=== PATIENT | male | born 1965 | race Caucasian/White ===

== ENCOUNTER 2020-07-28 14:12 | Inpatient (IN) | payer OTHER ==
[~2020-07-28] VITALS: Ht 165.1 cm; Wt 72.6 kg
--- NOTE | ~2020-07-28 | IN ---
[address] [address] INTERIM NOTE Name: STOCKTONEVERETTE Kristin Room: [address] ADM IN M.R.#: [id number] Admission: 07/28/20 Attend Phys: Zeus Mabry MD Discharge: Date of : 69 Report #: [id number] THIS REPORT FOR: cc: FAM - No family physician/PCP FAM - No family physician/PCP ~ Zachary Trevino MD SUBJECTIVE: The patient is feeling better, recovering from surgery well. Denies pain, fevers. PHYSICAL EXAMINATION: VITAL SIGNS: Afebrile, heart rate 72, respirations 18. NECK: Supple. There is no supraclavicular lymphadenopathy. LUNGS: Clear. EXTREMITIES: Lower extremity, no edema. Left thigh covered with dressing. LABORATORY DATA PATHOLOGY: Soft tissue neoplasm, leiomyosarcoma is not excluded. Margins involved. 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 I discussed pathology findings with the patient, the nature of neoplasm is not quite clear, margins are involved. He needs to have reexcision of the lesion. I recommended to see Dr. Christie, medical oncologist for followup. He will he will refer the patient to Dr. Ontiveros for definite surgery. I will discuss this case with Dr. Schwarz. By: [id number] Trevino MD /nt
[~2020-07-28 14:12] MED LIST: KEFLEX500 MG PO; PERCOCET 5-3251 EACH PO; SILVADENE20 GM TP
[2020-07-28 20:00] VITALS: BP 124/75
[2020-07-29 06:34] LABS: HEMATOCRIT 28.2 % (42.0-52.0); HEMOGLOBIN 9.4 gm/dL (14.0-18.0); MCH 29.7 pg (26.0-34.0); MCHC 33.3 g/dL (28.0-37.0); MCV 89.1 fL (80.0-100.0); MPV 7.3 fl. (7.2-11.1); RBC 3.16 mil/uL (4.50-6.00); RDW-CV 14.8 % (10.5-14.5); WBC 8.5 thou/uL (4.0-11.0)
[2020-07-29 06:58] LABS: CALCIUM 8.5 mg/dL (8.5-10.1); CREATININE 0.5 mg/dL (0.6-1.3); POTASSIUM 3.6 mmol/L (3.5-5.1)
[2020-07-29 07:38] VITALS: BP 108/62
[2020-07-29 20:10] VITALS: BP 125/80
[2020-07-30 08:00] VITALS: BP 99/66
[2020-07-30 20:11] VITALS: BP 102/59
[2020-07-31 07:36] VITALS: BP 122/75
[2020-07-31 19:50] VITALS: BP 125/67
[2020-08-01 08:00] VITALS: BP 118/60
[2020-08-01 19:44] VITALS: BP 117/72
[2020-08-02 04:12] LABS: CALCIUM 8.5 mg/dL (8.5-10.1); CREATININE 0.4 mg/dL (0.6-1.3); POTASSIUM 3.5 mmol/L (3.5-5.1)
[2020-08-02 04:16] LABS: HEMATOCRIT 27.8 % (42.0-52.0); HEMOGLOBIN 9.2 gm/dL (14.0-18.0); MCH 29.4 pg (26.0-34.0); MCHC 33.1 g/dL (28.0-37.0); MCV 88.9 fL (80.0-100.0); MPV 7.3 fl. (7.2-11.1); RBC 3.13 mil/uL (4.50-6.00); RDW-CV 15.4 % (10.5-14.5); WBC 9.3 thou/uL (4.0-11.0)
[2020-08-02 10:10] VITALS: BP 133/60
[2020-08-02 19:00] VITALS: BP 104/66; BP 139/67
[2020-08-03 07:44] VITALS: BP 134/83
[2020-08-03 19:30] VITALS: BP 132/80
[2020-08-04 07:30] VITALS: BP 130/82
[2020-08-04 08:00] VITALS: BP 130/82
[2020-08-04] MEDS ORDERED: MELATONIN1 MG PO (10:52)
[2020-08-04] MEDS ORDERED: COLACE 100 MG100 MG PO (10:52)
[2020-08-04] MEDS ORDERED: VOLTAREN GEL 1100 G1 TOP (10:52)
[2020-08-04] MEDS ORDERED: MI-ACID80 MG PO (10:52)
[2020-08-04] MEDS ORDERED: NEXIUM40 MG PO (10:52)
[2020-08-04] MEDS ORDERED: HYDROCODON-ACE1 EAC7 PO (10:52)
[2020-08-04 20:00] VITALS: BP 123/77
[2020-08-05 07:58] VITALS: BP 138/78
[2020-08-05 19:25] VITALS: BP 106/79
[2020-08-06 08:00] VITALS: BP 129/81
[2020-08-06 20:45] VITALS: BP 113/76
[2020-08-07 08:00] VITALS: BP 123/72
[2020-08-07 20:15] VITALS: BP 107/68
[2020-08-08 07:44] VITALS: BP 130/86
[2020-08-08 11:45] VITALS: BP 130/86
[2020-08-08] MEDS ORDERED: NEXIUM40 MG PO (11:48)
[2020-08-08] MEDS ORDERED: VOLTAREN GEL 1100 G1 TOP (11:48)
[2020-08-08] MEDS ORDERED: HYDROCODON-ACE1 EAC7 PO (11:48)
[2020-08-08] MEDS ORDERED: NORCO5 PO (12:15)
[2020-08-08 13:34] VITALS: BP 130/86
[2020-08-08 15:32] VITALS: BP 130/86
== END 2020-08-08 15:36 | disposition home or self-care (01) | DRG 947 ==
LOC: M.REH 14:12
PROVIDERS: ADMIT Physical Medicine & Rehabilitation; ATTEND Physical Medicine & Rehabilitation
DX: R53.81 Other malaise (principal); A41.9 Sepsis, unspecified organism; J96.01 Acute respiratory failure with hypoxia; J96.02 Acute respiratory failure with hypercapnia; E43 Unspecified severe protein-calorie malnutrition; G92 Toxic encephalopathy; R53.2 Functional quadriplegia; J15.6 Pneumonia due to other Gram-negative bacteria; K65.9 Peritonitis, unspecified; R65.20 Severe sepsis without septic shock; E87.1 Hypo-osmolality and hyponatremia; E87.6 Hypokalemia; K26.9 Duodenal ulcer, unspecified as acute or chronic, without hemorrhage or perforation; F17.210 Nicotine dependence, cigarettes, uncomplicated; F12.90 Cannabis use, unspecified, uncomplicated; B96.89 Other specified bacterial agents as the cause of diseases classified elsewhere; G72.89 Other specified myopathies; D49.89 Neoplasm of unspecified behavior of other specified sites; Z79.899 Other long term (current) drug therapy; Z68.26 Body mass index [BMI] 26.0-26.9, adult

== ENCOUNTER → 2020-08-11 | Outpatient (CLI) | payer OTHER ==
[~2020-08-11] MED LIST changes: +COLACE 100 MG100 MG PO; +HYDROCODON-ACE1 EAC7 PO; +MELATONIN1 MG PO; +MI-ACID80 MG PO; +NEXIUM40 MG PO; +NORCO5 PO; +VOLTAREN GEL 1100 G1 TOP
== END ==
LOC: M.WC 08-07 09:00
PROVIDERS: ATTEND Family Medicine
DX: T81.89XA Other complications of procedures, not elsewhere classified, initial encounter (principal); K25.1 Acute gastric ulcer with perforation; Z87.891 Personal history of nicotine dependence; Y83.8 Other surgical procedures as the cause of abnormal reaction of the patient, or of later complication, without mention of misadventure at the time of the procedure; Y92.238 Other place in hospital as the place of occurrence of the external cause

== ENCOUNTER → 2020-08-14 | Outpatient (CLI) | payer OTHER | LOC: M.WC 09:37 | PROVIDERS: ATTEND Surgery | DX: T81.89XD Other complications of procedures, not elsewhere classified, subsequent encounter (principal); K25.1 Acute gastric ulcer with perforation; Z87.891 Personal history of nicotine dependence; Y83.8 Other surgical procedures as the cause of abnormal reaction of the patient, or of later complication, without mention of misadventure at the time of the procedure ==

== ENCOUNTER → 2020-08-17 | Outpatient (CLI) | payer OTHER | LOC: M.WC 09:55 | PROVIDERS: ATTEND Surgery | DX: T81.89XD Other complications of procedures, not elsewhere classified, subsequent encounter (principal); K25.1 Acute gastric ulcer with perforation; Z87.891 Personal history of nicotine dependence; Y83.8 Other surgical procedures as the cause of abnormal reaction of the patient, or of later complication, without mention of misadventure at the time of the procedure ==

== ENCOUNTER → 2020-08-21 | Outpatient (CLI) | payer OTHER | LOC: M.WC 09:27 | PROVIDERS: ATTEND Surgery | DX: T81.89XD Other complications of procedures, not elsewhere classified, subsequent encounter (principal); K25.1 Acute gastric ulcer with perforation; Z87.891 Personal history of nicotine dependence; Y83.8 Other surgical procedures as the cause of abnormal reaction of the patient, or of later complication, without mention of misadventure at the time of the procedure ==

== ENCOUNTER → 2020-08-28 | Outpatient (CLI) | payer OTHER | LOC: M.WC 09:47 | PROVIDERS: ATTEND Surgery | DX: T81.89XD Other complications of procedures, not elsewhere classified, subsequent encounter (principal); K25.1 Acute gastric ulcer with perforation; Z87.891 Personal history of nicotine dependence; Y83.8 Other surgical procedures as the cause of abnormal reaction of the patient, or of later complication, without mention of misadventure at the time of the procedure ==

== ENCOUNTER → 2020-09-04 | Outpatient (CLI) | payer OTHER | LOC: M.WC 09:29 | PROVIDERS: ATTEND Surgery | DX: T81.89XD Other complications of procedures, not elsewhere classified, subsequent encounter (principal); K25.1 Acute gastric ulcer with perforation; Z87.891 Personal history of nicotine dependence; Y83.8 Other surgical procedures as the cause of abnormal reaction of the patient, or of later complication, without mention of misadventure at the time of the procedure ==

== ENCOUNTER 2020-11-04 12:33 | Inpatient (IN) | payer MEDICAID ==
[~2020-11-04] VITALS: Ht 165.1 cm; Wt 85.6 kg
[2020-11-04] VITALS (21 sets, daily range): BP systolic 86–140; BP diastolic 55–93
[2020-11-04 12:55] LABS: ABSOLUTE BASOPHILS 0.1 thou/uL (0.0-0.2); ABSOLUTE EOSINOPHILS 0.3 thou/uL (0.0-0.7); ABSOLUTE LYMPHOCYTES 3.4 thou/uL (0.8-5.3); ABSOLUTE MONOCYTES 0.7 thou/uL (0.0-1.2); ABSOLUTE NEUTROPHILS 4.7 thou/uL (1.6-8.1); EOSINOPHILS 3.1 %; HEMATOCRIT 45.7 % (42.0-52.0); HEMOGLOBIN 14.6 gm/dL (14.0-18.0); LYMPHOCYTES 37.3 %; MCH 26.3 pg (26.0-34.0); MCHC 32.1 g/dL (28.0-37.0); MONOCYTES 7.5 %; MPV 6.9 fl. (7.2-11.1); NUCLEATED RBCS 0 /100WBC; PLATELET COUNT* 459 thou/uL (150-400); POLYS 51.1 %; RBC 5.57 mil/uL (4.50-6.00); RDW-CV 18.1 % (10.5-14.5); WBC 9.2 thou/uL (4.0-11.0)
[2020-11-04 13:01] LABS: CALCIUM 9.1 mg/dL (8.5-10.1); CREATININE 0.8 mg/dL (0.6-1.3); POTASSIUM 3.7 mmol/L (3.5-5.1)
[2020-11-04 13:06] LABS: APTT 26.3 Seconds (25.0-31.3); PROTIME 10.2 Seconds (9.20-11.50)
--- NOTE | 2020-11-04 17:32 | NUR ---
PT ADMITTED TO ICU 6 AT 1425. PT STABLE. VSS, NO SIGNS OF BLEEDING. RIGHT GROIN CATH SITE DRESSING IS DRY AND INTACT. SO IS PRESENT AT BEDSIDE.
[2020-11-05] VITALS (14 sets, daily range): BP systolic 92–150; BP diastolic 48–129
[2020-11-05 03:19] LABS: HEMATOCRIT 40.5 % (42.0-52.0); HEMOGLOBIN 13.2 gm/dL (14.0-18.0); MCH 26.9 pg (26.0-34.0); MCHC 32.6 g/dL (28.0-37.0); MCV 82.5 fL (80.0-100.0); RBC 4.91 mil/uL (4.50-6.00); WBC 7.6 thou/uL (4.0-11.0)
[2020-11-05 03:26] LABS: CALCIUM 8.3 mg/dL (8.5-10.1); CREATININE 0.8 mg/dL (0.6-1.3); POTASSIUM 3.8 mmol/L (3.5-5.1)
--- NOTE | 2020-11-05 04:41 | NUR ---
ASSUMED CARE OF PATIENT AT 1900. DENIES PAIN, SOA, OR N/V. ECTOPY NOTED ON LAYER OUT. TELEMETRY STICKERS REPLACED. SMOKING CESSATION GIVEN. DISCUSSED NEW MEDS. SIGNIFICANT OTHER UPDATED. PROGRESSING WELL TOWARDS POC GOALS.
--- NOTE | 2020-11-05 11:46 | NUR ---
Pt was seen by Dr Mcgill this am. Ok to go to tele floor, but needs obs at least one more night. Waiting for a room assignment. VSS, HR stable with ectopies. Denies pain at this time. Will continue to monitor.
--- NOTE | 2020-11-05 18:51 | NUR ---
PT. TRANSFERED TO UNIT FROM ICU BY WHEELCHAIR WITH SPOUSE AROUND 1745, REPORT RECEIVED FROM DEREJE NEAL. SR ON MONITOR, IN STABLE CONDITION, DENIES PAIN OR DISCOMFORT. PT. AMBULATING IN HALLWAY, WITHOUT DIFFICULTY. CALL LIGHT AND PERSONAL BELONGINGS PLACED WITHIN REACH.
--- NOTE | 2020-11-05 23:49 | CON ---
[address] [address] CONSULTATION Name: EVERETTE STOCKTON V Room: [address] IN .R.#: [id number] Admission: 11/04/20 Attend Phys: Pam Brunson MD Discharge: Date of : 69 Report #: [id number] THIS REPORT FOR: cc: FAM - No family physician/PCP FAM - No family physician/PCP Nikolas Mistry MD ~ DOC #: [id number] Nikolas Mistry MD DATE OF CONSULTATION: 11/04/2020 CARDIOLOGY CONSULTATION INDICATION: Chest pain. HISTORY OF PRESENT ILLNESS: This is a 55-year-old gentleman with a history of perforated gastric ulcer, leiomyosarcoma, hypercholesterolemia, tobacco use, presenting with acute onset of chest pain. He was eating this morning when he developed substernal chest pressure, radiating both shoulders and neck area. He felt nauseous and dyspneic. He denies any history of fever or diarrhea. There is no history of orthopnea. He presented to the ER, ECG revealed ST elevation in the inferior leads. PAST MEDICAL HISTORY: Negative for diabetes, negative for hypertension. History of hypercholesterolemia. Leiomyosarcoma of the lower extremity, status post surgery. Recent hospitalization for perforated gastric ulcer requiring multiple surgeries, attributed to NSAID use. ALLERGIES: MORPHINE. MEDICATIONS AT HOME: Include PPI. SOCIAL HISTORY: Tobacco use, 1 pack per day. FAMILY HISTORY: Brother with a history of DC in his 40s. REVIEW OF SYSTEMS: All the pertinent positives and negatives in the HPI. PHYSICAL EXAMINATION: VITAL SIGNS: Blood pressure is 100/60, heart rate is 70 beats per minute. GENERAL APPEARANCE: This is a well-developed, well-nourished male in mild distress. HEENT: Normocephalic, atraumatic. Oral mucosa moist. NECK: Supple. LUNGS: Clear to auscultation. CARDIAC: Regular rate and rhythm, S1, [place] [address] CONSULTATION Name: STOCKTONEVERETTE Kristin Room: [address]#: [id number] Admission: 11/04/20 Attend Phys: Pam Brunson MD Discharge: Date of : 69 Report #: [id number] ABDOMEN: Soft, nontender. EXTREMITIES: No cyanosis, no edema. LABORATORY DATA: ECG reveals sinus rhythm, ST elevation in the inferior leads. ASSESSMENT AND PLAN: 1. Acute inferior wall myocardial infarction. The patient was treated with aspirin, Brilinta and heparin in the ER. He will be taken emergently to the cardiac phlebotomist lab assistant. 2. Tobacco use, complete smoking cessation is advised. 3. Hypercholesterolemia, we will initiate atorvastatin. Nikolas Mistry MD JP/SENG <ELECTRONICALLY SIGNED> By: Nikolas Mistry MD 11/05/20 2349 1319 2044MD daily Hernandez
[2020-11-06] VITALS: BP 112/72
[2020-11-06 04:00] VITALS: BP 100/61
[2020-11-06 04:39] LABS: ALBUMIN 2.8 g/dL (3.4-5.0); CALCIUM 8.5 mg/dL (8.5-10.1); CREATININE 0.8 mg/dL (0.6-1.3); HEMATOCRIT 41.1 % (42.0-52.0); HEMOGLOBIN 13.4 gm/dL (14.0-18.0); MAGNESIUM 1.8 mg/dL (1.8-2.4); MCH 26.3 pg (26.0-34.0); MCHC 32.6 g/dL (28.0-37.0); MCV 80.7 fL (80.0-100.0); MPV 7.4 fl. (7.2-11.1); POTASSIUM 3.6 mmol/L (3.5-5.1); RBC 5.09 mil/uL (4.50-6.00); RDW-CV 18.1 % (10.5-14.5); TOTAL BILIRUBIN 0.2 mg/dL (<0.1-1.0); TOTAL PROTEIN 6.3 g/dL (6.4-8.2); WBC 6.2 thou/uL (4.0-11.0)
[2020-11-06] MEDS ORDERED: BRILINTA90 MG PO (07:37)
[2020-11-06] MEDS ORDERED: BAYER CHEWABLE81 MG PO (07:37)
[2020-11-06] MEDS ORDERED: LIPITOR 40 MG T40 M1 PO (07:37)
[2020-11-06 08:00] VITALS: BP 133/82
--- NOTE | 2020-11-06 09:07 | CARD ---
[address] [address] CARDIAC CATH REPORT Name: EVERETTE STOCKTON V Room: [address] IN [facility].#: [id number] Admission: 11/04/20 Attend Phys: Pam Brunson MD Discharge: Date of : 69 Report #: [id number] THIS REPORT FOR: cc: FAM - No family physician/PCP FAM - No family physician/PCP Nikolas Mistry MD ~ APPROVED REPORT Study performed: 11/04/2020 13:13:59 Patient Details Patient Status: ED Room #: The patient is a 55 year-old male Event Personnel Nati Cain, Radha Hernández RN RN, Gabriel Gresham RTR Scrub, Nikolas Mistry Propagation Manager Procedures Performed Art Access - R femoral artery* Left Heart Cath w/or w/o Coronaries [id number] [facility] CEASAR Place w/wo Plasty Single RCA 192311 Indication Abnormal ECG, STEMI (>0 to less than or equal to 6 hours), Dyspnea, Chest pain Risk Factors Family History, HypercholesterolemiaPhysical Activity, Tobacco History () Procedure Narrative The patient was brought emergently to the Cardiac Catheterization Laboratory and was prepped and draped in a sterile manner. The right femoral was infiltrated with 2% Lidocaine subcutaneous anesthesia. A [place] 6 FR sheath was inserted into the right femoral artery. Coronary angiography was performed using coronary diagnostic catheters. The right coronary system was accessed and visualized with a Diagnostic catheter. The left coronary system was accessed and visualized with a Diagnostic catheter. The left ventricle was accessed and visualized with a Diagnostic catheter. Left ventricular/Aortic Valve gradient assessed via catheter pullback. Closure device was deployed with a 6 Fr Angioseal. The patient tolerated the procedure well [place] [address] CARDIAC CATH REPORT Name: EVERETTE STOCKTON Kristin Room: [address]#: [id number] Admission: 11/04/20 Attend Phys: Pam Brunson MD Discharge: Date of : 69 Report #: [id number] associated with the procedure. There was no hematoma. Intraoperative Conscious Sedation No sedation given. Fluoro Time: 8.5 minutes Contrast Type and Amount: Visipaque 160 ml Coronary Angiography The patient's coronary anatomy is right dominant. Diagnostic Cath Left Main The left main artery is a large-caliber vessel with mild tapering distally. LAD The LAD is a moderate-sized caliber vessel, traverses the anterior wall and wraps around the apex. This vessel appears angiographically normal. Diagonal 1 This is a small to moderate-sized caliber vessel with mild disease proximally, 20%. Circumflex The left circumflex has a moderate stenosis in the proximal segment, 40%. OM1 This is a small to moderate-sized caliber vessel with a total occlusion proximally. The distal segments are partially filled via collateral circulation. OM2 This is a small caliber vessel, patent with no flow-limiting lesions. Right Coronary The RCA is a dominant vessel with a severe obstruction in the distal segment just before the crux, 95%. R PDA There is a severe obstruction in the proximal segment. RPLV There is a severe obstruction in the ostial segment. Left Ventriculography The left ventricle is mildly dilated in size with Diminished contractility. The left ventricular ejection fraction is estimated to be 35-40%. Left ventricular wall motion abnormalities are present. There is hypokinesis of the inferior wall. Hemodynamics The aortic pressure is 123/56 mmHg with a mean of 90 mmHg. The left ventricular pressure is 110/4 mmHg with a mean of mmHg. The left ventricular end diastolic pressure is 14 mmHg. There was no gradient across the aortic valve upon pullback. [place] [address] CARDIAC CATH REPORT Name: EVERETTE STOCKTON V Room: [address] IN [facility]#: [id number] Admission: 11/04/20 Attend Phys: Pam Brunson MD Discharge: Date of : 69 Report #: [id number] Anticoagulation was achieved with Angiomax. Patient was preloaded with Brillinta. Percutaneous coronary intervention was performed on the distal right coronary artery. The lesion stenosis prior to intervention was 95% with RAMOS 2 flow. A 6F JR 4.0 Guide Catheter was used to engage the ostium. A IG: Luge Wire 180 Interventional Guidewire was used to cross the lesion. BALLOON DILATION A Balloon catheter Trek RX 2.25 X 15 was inserted and inflated up to 12.00atm for 10seconds. Additional Inflation: 12.00atm for 8seconds. Additional Inflation: 14.00atm for 8seconds. Additional Inflation: 14.00 milly for 7 seconds STENT DEPLOYMENT A drug-eluting stent [place] RX Stent 2.5X18mm was inserted and inflated up to 18.00atm for 12seconds. Final angiography reveals 0 % stenosis with RAMOS 3 flow. Conclusion 1. Successful insertion of a drug-eluting stent into the distal RCA/ostial PDA segment. 2. There is a total occlusion in the first OM, the distal vessel is partially filled via collateral circulation. 3. There is moderate segmental LV dysfunction. 4. Recommend dual antiplatelet therapy and aggressive risk factor management. <ELECTRONICALLY SIGNED> By: Nikolas Mistry MD 11/06/20905 5 5Nikolas Mistry MD /INF
[2020-11-06 10:17] VITALS: BP 133/82
[2020-11-06 11:22] VITALS: BP 133/82
--- NOTE | 2020-11-06 11:49 | NUR ---
patient given d/c papers, education, verbalized understanding. IV taken out, campus monitor taken off, taken to car by wheelchair.
--- NOTE | 2020-11-06 15:17 | EKG ---
[place] [address] ELECTROCARDIOGRAM REPORT Name: EVERETTE STOCKTON V Room: [address] IN .R.#: [id number] Admission: 11/04/20 Attend Phys: Pam Brunson, Discharge: 11/06/20 Date of : 69 Date of Service: 11/04/20 1237 Report #: [id number] THIS REPORT FOR: //name// [facility] ED Test Date: 2020-11-04 Test Time: 12:37:44 Pat Name: EVERETTE STOCKTON Department: Room: [facility] Gender: M Mop[place] Sewer: EVELYN : 1965 Requested By: Dre Maurer Order Number: [id number] MD: Mushtaq Contreras Measurements Intervals [place] Rate: 55 P: 77 [place]: 144 QRS: 73 QRSD: 102 T: 94 QT: 454 QTc: 435 Interpretive Statements Sinus rhythm Inferior infarct, acute (RCA) Probable RV involvement, suggest recording right precordial leads Compared to ECG 06/24/2020 08:10:00 Myocardial infarct finding now present Wide-QRS tachycardia no longer present Electronically Signed On 11-06-2020 15:17:47 CDT by Mushtaq Contreras [email or web address] <ELECTRONICALLY SIGNED> By: Mushtaq Contreras MD, [facility] 11/06/20 1517 1237 1237 Mushtaq Contreras MD, [facility] /EPI
== END 2020-11-06 11:27 | disposition home or self-care (01) | DRG 246 ==
LOC: M.ERS 12:33 → M.TBA-ER 13:10 → M.ICU 13:21 → M.2W 11-05 17:50
PROVIDERS: Emergency Medicine; ADMIT Internal Medicine; ATTEND Internal Medicine
PROC: B211YZZ Fluoroscopy of Multiple Coronary Arteries using Other Contrast (ICD-10-PCS; principal; 2020-11-04)
PROC: 027034Z Dilation of Coronary Artery, One Artery with Drug-eluting Intraluminal Device, Percutaneous Approach (ICD-10-PCS; principal; 2020-11-04)
PROC: B215YZZ Fluoroscopy of Left Heart using Other Contrast (ICD-10-PCS; principal; 2020-11-04)
PROC: 4A023N7 Measurement of Cardiac Sampling and Pressure, Left Heart, Percutaneous Approach (ICD-10-PCS; principal; 2020-11-04)
DX: I21.19 ST elevation (STEMI) myocardial infarction involving other coronary artery of inferior wall (principal); R53.2 Functional quadriplegia; E78.5 Hyperlipidemia, unspecified; F17.210 Nicotine dependence, cigarettes, uncomplicated; E78.00 Pure hypercholesterolemia, unspecified; Z20.822 Contact with and (suspected) exposure to COVID-19; Z79.899 Other long term (current) drug therapy; Z88.5 Allergy status to narcotic agent

== ENCOUNTER 2021-03-06 08:37 | Observation (INO) | payer MEDICAID ==
[2021-03-06] VITALS (12 sets, daily range): BP systolic 102–138; BP diastolic 59–87
[~2021-03-06] VITALS: Ht 165.1 cm; Wt 83.9 kg
--- NOTE | ~2021-03-06 | H ---
[address] [address] HISTORY AND PHYSICAL Name: EVERETTE STOCKTON V Room: [address] Mariela Ferguson#: [id number] Admission: 03/06/21 Attend Phys: Neri Mcgill MD Discharge: 03/07/21 Date of : 69 Report #: [id number] THIS REPORT FOR: cc: WILLIAM JARRELL M.D, JEAN-PHILIPPE E. M.D [facility],Medical Records Staff ~ Please refer to the History and Physical performed in the physician's office. By: 1340Medical Records Staff ROSELINE /ELENA
[~2021-03-06 08:37] MED LIST changes: +BAYER CHEWABLE81 MG PO; +BRILINTA90 MG PO; +LIPITOR 40 MG T40 M1 PO
[2021-03-06] MEDS ORDERED: LISINOPRIL5 MG PO (09:49)
[2021-03-06] MEDS ORDERED: RANEXA500 MG PO (09:49)
[2021-03-06 10:00] LABS: ABSOLUTE BASOPHILS 0.1 thou/uL (0.0-0.2); ABSOLUTE EOSINOPHILS 0.3 thou/uL (0.0-0.7); ABSOLUTE LYMPHOCYTES 2.3 thou/uL (0.8-5.3); ABSOLUTE MONOCYTES 0.8 thou/uL (0.0-1.2); ABSOLUTE NEUTROPHILS 5.9 thou/uL (1.6-8.1); EOSINOPHILS 2.8 %; HEMATOCRIT 43.6 % (42.0-52.0); HEMOGLOBIN 14.5 gm/dL (14.0-18.0); LYMPHOCYTES 24.1 %; MCH 28.4 pg (26.0-34.0); MCHC 33.1 g/dL (28.0-37.0); MCV 85.8 fL (80.0-100.0); MONOCYTES 8.7 %; MPV 7.6 fl. (7.2-11.1); NUCLEATED RBCS 0 /100WBC; PLATELET COUNT* 396 thou/uL (150-400); POLYS 63.4 %; RBC 5.09 mil/uL (4.50-6.00); RDW-CV 17.8 % (10.5-14.5); WBC 9.4 thou/uL (4.0-11.0)
[2021-03-06 10:03] LABS: ANION GAP 12 mmol/L (7-16); BUN 16 mg/dL (7-18); CALCIUM 8.5 mg/dL (8.5-10.1); CHLORIDE 102 mmol/L (98-107); CO2 24 mmol/L (21-32); CREATININE 0.9 mg/dL (0.6-1.3); GLUCOSE 107 mg/dL (70-99); POTASSIUM 4.1 mmol/L (3.5-5.1); SODIUM 138 mmol/L (136-145)
[2021-03-06 10:05] LABS: SERUM ASSESSMENT Clear
[2021-03-06 10:07] LABS: APTT 28.3 Seconds (25.0-31.3); PROTIME 10.2 Seconds (9.20-11.50)
[2021-03-06 10:08] LABS: CHOLESTEROL 141 mg/dL (<200); HDL CHOLESTEROL 49 mg/dL (>40); LDL CHOLESTEROL 68 mg/dL (<100); TC:HDL 2.9 Ratio (Not establshd); TRIGLYCERIDE 122 mg/dL (<150); VLDL 24 mg/dL (<40)
--- NOTE | 2021-03-06 16:42 | CARD ---
[address] [address] CARDIAC CATH REPORT Name: EVERETTE STOCKTON V Room: [address] M.R.#: [id number] Admission: 03/06/21 Attend Phys: Neri Mcgill MD Discharge: Date of : 69 Report #: [id number] THIS REPORT FOR: cc: WILLIAM JARRELL M.D, JEAN-PHILIPPE E. M.D Holkins, John M. MD [facility] ~ APPROVED REPORT Study performed: 03/06/2021 09:29:38 Patient Details Patient Status: Out-Patient Room #: The patient is a 55 year-old male Event Personnel Neri Mcgill Book Salesman, Cheryl Quezada RN RN, Gabriel Gresham RTR Scrub, Denisse Mosley RTR Monitor, Mushtaq Contreras Hide Measuring Machine Operator Procedures Performed Art Access - R femoral artery Left Heart Cath w/or w/o Coronaries CEASAR Place w/wo Plasty Single CIERA Hemostasis w/ Angioseal Indication Unstable angina Risk Factors Hypercholesterolemia, Hypertension Previous Procedures/Diagnoses Previous PCI, Previous DE Admission/Lab Medications/Medications given during procedure Oxygen Nasal cannula 2 l per min, 0.9% Sodium Chloride IV 75 ml per hr, Lidocaine Subcut 14 ml, Angiomax IV 13 ml, Nitroglycerin IC 200 mcg, Angiomax Drip IV 30 ml per hr Procedure Narrative The patient was brought electively to the Cardiac Catheterization Laboratory and was prepped and draped in a sterile manner. The right femoral was infiltrated with 2% Lidocaine subcutaneous anesthesia. IV conscious sedation was used throughout procedure with appropriate monitoring and was performed in the [place] [address] CARDIAC CATH REPORT Name: EVERETTE STOCKTON V Room: [address] Marty#: [id number] Admission: 03/06/21 Attend Phys: Neri Mcgill MD Discharge: Date of : 69 Report #: [id number] who was an independent trained observer other than the physician performing the procedure. A [place] 6 FR sheath was inserted into the right femoral artery. Coronary angiography was performed using coronary diagnostic catheters. The right coronary system was accessed and visualized with a Guide 6 Fr JR 3.5 SH catheter. The left coronary system was accessed and visualized with a Diagnostic 6 Fr JL 4 catheter. The left ventricle was accessed and visualized with a Guide 6 Fr JR 3.5 SH catheter. Left ventricular/Aortic Valve gradient assessed via catheter pullback. Pre-demployment femoral angiogram was performed . Closure device was deployed with a Fr Angioseal STS 6Fr. The patient tolerated the procedure well and there were no complications associated with the procedure. There was no hematoma. Intraoperative Conscious Sedation Sedation start time: 10:32 Case end Time: 10:59 Fentanyl 25 mcg Versed 1 mg Fluoro Time: 7.3 minutes Dose: DAP [id number] cGycm2 1618 mGy Contrast Type and Amount: Visipaque 170 ml Coronary Angiography The patient's coronary anatomy is right dominant. Diagnostic Cath Left Main 0% narrowing LAD 40% mid vessel narrowing Circumflex 100% occlusion of the first marginal branch of the nondominant circumflex with left to left collateral filling of the distal circumflex in retrograde fashion Right Coronary 40% mid vessel narrowing with 80% ostial stenosis at the takeoff of the postero- lateral branch of the distal right coronary artery Left Ventriculography Left Ventriculography was not performed. Hemodynamics The aortic pressure is 90/58 mmHg with a mean of 46 mmHg. The left ventricular pressure is 93/0 mmHg with a mean of mmHg. The left ventricular end diastolic pressure is 16 mmHg[place] [address] CARDIAC CATH REPORT Name: EVERETTE STOCKTON V Room: [address]Giselle#: [id number] Admission: 03/06/21 Attend Phys: Neri Mcgill MD Discharge: Date of : 69 Report #: [id number] Anticoagulation was achieved with Angiomax Drip. Patient was preloaded with Angiomax IV 13 ml. Percutaneous coronary intervention was performed on the first right posterior lateral segment. The lesion stenosis prior to intervention was 80% with RAMOS 3 flow. A 6 Fr JR 3.5 SH Guide Catheter was used to engage the right ostium. A IG: ProwaterFlex 180CM Interventional Guidewire was used to cross the lesion. BALLOON DILATION A Balloon catheter Mini Trek RX 2.0 X 8 was inserted and inflated up to 12.00atm for 8seconds. Additional Inflation: 12.00atm for 7seconds. Additional Inflation: 14.00atm for 8seconds. STENT DEPLOYMENT A drug-eluting stent [place] RX Stent 2.25X8mm was inserted and inflated up to 8.00atm for 9seconds. Additional Inflation: 9.00atm for 4seconds. Final angiography reveals 0 % stenosis with RAMOS 3 flow. Conclusion 1. Significant coronary artery disease characterized by the following: A 40% mid LAD narrowing B 100% occlusion of the first marginal branch of the nondominant circumflex with left to left collateral filling the distal circumflex C dominant right coronary artery with 40% mid vessel narrowing and 80% ostial stenosis of the postero- lateral branch of the distal right coronary artery 2. Mild elevation of left ventricular end-diastolic pressure at rest 3. Successful PCI with deployment of a drug-eluting stent at the site of 80% ostial postero- lateral branch narrowing in the distal right coronary artery with 0% residual narrowing and RAMOS-3 flow to the distal vessel Recommendations [place] [address] CARDIAC CATH REPORT Name: EVERETTE STOCKTON V Room: [address] MGiselleRGiselle#: [id number] Admission: 03/06/21 Attend Phys: Neri Mcgill MD Discharge: Date of : 69 Report #: [id number] Aggressive Medical Therapy Medications Administered Aspirin (any) Prasugrel Diagnostic Cath Approved by: Neri Mcgill MD Date/Time: 03/06/2021 16:38:59 <ELECTRONICALLY SIGNED> By: Mushtaq Contreras MD, FAC 03/06/21 164 40 40Jogirish Contreras MD, FAC /INF
--- NOTE | 2021-03-06 17:49 | EKG ---
[place] [address] ELECTROCARDIOGRAM REPORT Name: EVERETTE STOCKTON V Room: [address]R.#: [id number] Admission: 03/06/21 Attend Phys: Neri Mcgill, Discharge: Date of : 69 Date of Service: 03/06/21 0938 Report #: [id number] THIS REPORT FOR: //name// [facility] Test Date: 2021-03-06 Test Time: 09:38:59 Pat Name: EVERETTE STOCKTON Department: Room: [facility] Gender: M Lead Technical Architect: IONA : 1965 Requested By: Neri Mcgill Order Number: [id number] Reading MD: Neri Mcgill Measurements Intervals [place] Rate: 81 P: 49 [place]: 139 QRS: 46 QRSD: 111 T: 56 QT: 424 QTc: 493 Interpretive Statements Sinus rhythm Ventricular bigeminy Inferior infarct, old, possible Abnormal lateral Q waves Compared to ECG 11/04/2020 12:37:44 Ventricular premature complex(es) now present Q waves now present Myocardial infarct finding still present Electronically Signed On 03-06-2021 17:48:50 CDT by Neri Mcgill [email or web address] <ELECTRONICALLY SIGNED> By: Neri Mcgill MD, FACC 03/06/21 1748 7 7 Neri Mcgill MD, FAC /EPI
--- NOTE | 2021-03-06 17:53 | EKG ---
[place] [address] ELECTROCARDIOGRAM REPORT Name: STOCKTONEVERETTE V Room: [address] M.R.#: [id number] Admission: 03/06/21 Attend Phys: Neri Mcgill, Discharge: Date of : 69 Date of Service: 03/06/21 1415 Report #: [id number] THIS REPORT FOR: //name// [facility] Test Date: 2021-03-06 Test Time: 14:15:36 Pat Name: EVERETTE STOCKTON Department: Room: [facility] Gender: M Clinical Informatics Specialist: SADE : 1965 Requested By: Neri Mcgill Order Number: [id number] Reading MD: Neri Mcgill Measurements Intervals [place] Rate: 80 P: 73 [place]: 152 QRS: 12 QRSD: 101 T: 37 QT: 461 QTc: 532 Interpretive Statements Sinus rhythm Paired ventricular premature complexes Probable inferior infarct, old Compared to ECG 03/06/2021 09:38:59 Q waves no longer present Myocardial infarct finding still present Electronically Signed On 03-06-2021 17:53:28 CDT by Neri Mcgill [email or web address] <ELECTRONICALLY SIGNED> By: Neri Mcgill MD, FAC 03/06/21 1753 1415 1415 Neri Mcgill MD, [facility] /EPI
[2021-03-07] VITALS: BP 115/50
[2021-03-07 04:00] VITALS: BP 119/66
[2021-03-07 04:41] LABS: HEMATOCRIT 42.5 % (42.0-52.0); MCH 28.4 pg (26.0-34.0); MCV 86.1 fL (80.0-100.0); MPV 7.7 fl. (7.2-11.1); RBC 4.94 mil/uL (4.50-6.00); RDW-CV 18.1 % (10.5-14.5); WBC 8.5 thou/uL (4.0-11.0)
[2021-03-07 05:23] LABS: ALBUMIN 3.1 g/dL (3.4-5.0); CALCIUM 8.3 mg/dL (8.5-10.1); CREATININE 0.9 mg/dL (0.6-1.3); POTASSIUM 3.9 mmol/L (3.5-5.1); TOTAL BILIRUBIN 0.3 mg/dL (<0.1-1.0); TOTAL PROTEIN 6.1 g/dL (6.4-8.2)
[2021-03-07 08:00] VITALS: BP 125/70
[2021-03-07 08:59] VITALS: BP 119/66
[2021-03-07 09:12] VITALS: BP 119/66
[2021-03-07 09:17] VITALS: BP 125/70
--- NOTE | 2021-03-07 16:08 | 2DMMODE ---
[place] [address] 2 D/M-MODE ECHOCARDIOGRAM Name: EVERETTE STOCKTON V Room: [address] Mariela MJessi#: [id number] Admission: 03/06/21 Attend Phys: Neri Mcgill, Discharge: 03/07/21 Date of : 69 Date of Service: 03/07/21 1608 Report #: [id number] THIS REPORT FOR: cc: WILLIAM JARRELL M.D, JEAN-PHILIPPE E. M.D Holkins, John M. MD [facility] ~ APPROVED REPORT Study performed: 03/07/2021 09:43:36 EXAM: Limited 2D Echocardiogram Patient Location: In-Patient Room #: [facility] Status: routine BSA: 1.91 HR: 64 bpm BP: 125/70 mmHg Rhythm: NSR Other Information Study Quality: Good Indications STENT, EF FOLLOW-UP Left Ventricle The left ventricle is normal size. There is normal LV segmental wall motion. There is normal left ventricular wall thickness. The left ventricular systolic function is normal. The left ventricular ejection fraction is within the normal range. LVEF is 55-60%. Right Ventricle The right ventricle is normal size. The right ventricular systolic function is normal. Atria The left atrium size is normal. The right atrium size is normal. Aortic Valve The aortic valve is normal in structure. Mitral Valve The mitral valve [place] [address] 2 D/M-MODE ECHOCARDIOGRAM Name: EVERETTE STOCKTON V Room: [address] Mariela Ferguson#: [id number] Admission: 03/06/21 Attend Phys: Neri Mcgill, Discharge: 03/07/21 Date of : 69 Date of Service: 03/07/21 1608 Report #: [id number] Tricuspid Valve The tricuspid valve is normal in structure. Pulmonic Valve The pulmonary valve is normal in structure. Great Vessels The aortic root is normal in size. IVC is normal in size and collapses >50% with inspiration. Pericardium There is no pericardial effusion. <Conclusion> There is normal left ventricular wall thickness. The left ventricular systolic function is normal. The left ventricular ejection fraction is within the normal range. LVEF is 55-60%. The right ventricle is normal size. The left atrium size is normal. The aortic valve is normal in structure. The mitral valve is normal in structure. The tricuspid valve is normal in structure. IVC is normal in size and collapses >50% with inspiration. There is no pericardial effusion. There is normal LV segmental wall motion. <ELECTRONICALLY SIGNED> By: Mushtaq Contreras MD, [facility] 03/07/21 1608 1608 1608 Mushtaq Contreras MD, [facility] /INF
--- NOTE | 2021-03-08 14:38 | D ---
[facility] [address] [place] [address] DISCHARGE SUMMARY Name: EVERETTE STOCKTON V Room: [address] Mariela Ferguson#: [id number] Admission: 03/06/21 Attend Phys: Neri Mcgill MD Discharge: 03/07/21 Date of : 69 Report #: [id number] THIS REPORT FOR: cc: WILLIAM JARRELL M.D, JEAN-PHILIPPE E. M.D Liston, Michael J. MD [facility] ~ cc: Dr. William Jarrell DATE OF DISCHARGE: 03/07/2021 DISCHARGE DIAGNOSES: 1. Unstable angina. 2. Coronary artery disease. 3. Mixed hyperlipidemia. DISCHARGE MEDICATIONS: 1. Colace 100 mg p.o. b.i.d. 2. Nexium 40 mg p.o. b.i.d. 3. Brilinta 90 mg p.o. b.i.d. 4. Atorvastatin 40 mg at bedtime. 5. Aspirin 81 mg daily. 6. Lisinopril 5 mg daily. 7. Ranolazine 500 mg b.i.d. DISPOSITION: The patient is to follow up in 6-8 weeks with Cardiology. HISTORY AND HOSPITAL COURSE: The patient was brought to the hospital with progressive continued chest pain after recent intervention to the distal right coronary artery. Angiography revealed 80% branch narrowing of the posterolateral LV branch across the stent. The intervention was undertaken with drug-eluting stent placement with excellent result. The patient tolerated the procedure well without complication. He is being discharged to home uneventfully. <ELECTRONICALLY SIGNED> By: Neri Mcgill MD, [facility] 03/08/21 1438 0613 0655Micantwan Mcgill MD, FAC /nt
== END 2021-03-07 10:00 | disposition home or self-care (01) ==
LOC: M.CL 08:37 → M.2W 10:59 → M.TBA-CV 10:59 → M.2W 16:15
PROVIDERS: ADMIT Internal Medicine Cardiovascular Disease; ATTEND Internal Medicine Cardiovascular Disease
DX: I25.110 Atherosclerotic heart disease of native coronary artery with unstable angina pectoris (principal); E78.2 Mixed hyperlipidemia; Z20.822 Contact with and (suspected) exposure to COVID-19; Z88.5 Allergy status to narcotic agent; Z79.01 Long term (current) use of anticoagulants; Z79.899 Other long term (current) drug therapy